=== PATIENT | female | born 1960 | race Caucasian/White ===

== ENCOUNTER 2019-01-30 08:20 | Day surgery (SDC) | payer OTHER ==
[~2019-01-30] VITALS: Ht 152.4 cm; Wt 84.7 kg
[~2019-01-30 08:20] MED LIST: AMLO-147 PO; ASPI-817 PO; Amoxicillin; LISI10TA2 PO; carvedilol
[2019-01-30 08:57] VITALS: Ht 152.4 cm; Wt 84.7 kg
[2019-01-30 09:32] VITALS: BP 144/81; PULSE 74; RESP 24
[2019-01-30] MEDS ORDERED: MIDAZOLAM 1 MG/ML 2 ML INJ ONE ×2 (10:10)
[2019-01-30] MEDS ORDERED: FENTAnyl 50 MCG/ML VIAL ONE (10:10)
[2019-01-30 10:21] VITALS: BP 131/60; RESP 20
[2019-01-30 10:41] VITALS: BP 132/78; RESP 20
== END 2019-01-30 11:50 | disposition home or self-care (01) ==
LOC: GIL 08:20
PROVIDERS: ATTEND Internal Medicine Gastroenterology
DX: Z12.11 Encounter for screening for malignant neoplasm of colon (principal); D12.2 Benign neoplasm of ascending colon; K64.8 Other hemorrhoids; K57.30 Diverticulosis of large intestine without perforation or abscess without bleeding; I10 Essential (primary) hypertension
CPT/HCPCS: 45380; J2250; J3010; Z7610; 88305